=== PATIENT | female | born 1990 | race Caucasian/White ===

== ENCOUNTER 2018-10-20 15:50 | Emergency (ER) | payer OTHER ==
--- NOTE | 2018-10-20 15:56 | ED Physician Documentation ---
General Adult - HISTORIAN Historian: patient - HPI Stated Complaint: Rash Chief Complaint: Skin Rash Onset: days ago (2) Timing: still present Severity: mild Further Comments: yes (She states she was treated for scabies in the ER in [place] and she was told to repeat the scabies treatment in two weeks. She is supposed to move into a treatment facility and she wants a note from us saying she cannot move in this facility (which she shared was court ordered) until after her second treament is complete in two weeks. She then states she needs to a note to say that they should wash her linens there. She has taken the med as ordered.) - ROS CONST: no problems EYES/ENT: none MS/SKIN/LYMPH: other (no rash noted she states she has itching all over ) - PAST HX Past History: none Allergies/Adverse Reactions: Allergies Allergy/AdvReac Type Severity Reaction Status Date / Time No Known Allergies Allergy Verified 10/20/18 15:54 Home Medications: Ambulatory Orders Medication Instructions Recorded NK 10/20/18 - SOCIAL HX Smoking History: non-smoker Alcohol Use: none Drug Use: none - FAMILY HX Family History: No - VITAL SIGNS Vital Signs: Vital Signs Temp Pulse Resp BP Pulse Ox 59 L 16 108/75 99 10/20/18 15:50 10/20/18 15:50 10/20/18 15:50 10/20/18 15:50 - REVIEWED ASSESSMENTS Nursing Assessment Reviewed: Yes Vitals Reviewed: Yes General Adult Physical Exam - PHYSICAL EXAM GENERAL APPEARANCE: no distress EENT: eye inspection normal, no signs of dehydration NECK: normal inspection RESPIRATORY: no resp distress, chest non-tender, breath sounds normal CVS: reg rate & rhythm, heart sounds normal, equal pulses, no murmur ABDOMEN: soft, no distension BACK: normal inspection SKIN: warm/dry, normal color EXTREMITIES: non-tender NEURO: oriented X3 Discharge Clincal Impression: Skin rash Referrals: Primary Doctor,No [Primary Care Provider] - 2 Days Comments: 1. Follow up with original provider who stated she must have two treatments to be cleared to go to the facility 2. Return to ER for any increasing concerns Condition: Stable Disposition: 01 HOME, SELF-CARE Decision to Admit: NO Date of Decison to Admit: 10/20/18 Decision Time: 15:58
[2018-10-20 16:06] VITALS: BP 108/75
== END 2018-10-20 16:00 | disposition home or self-care (01) ==
LOC: ED 15:50
DX: R21 Rash and other nonspecific skin eruption (principal)
CPT/HCPCS: 99282